=== PATIENT | female | born 1975 ===

== ENCOUNTER 2018-05-10 10:21 | Outpatient (CLI) | payer OTHER ==
[~2018-05-10] VITALS: Ht 152.4 cm; Wt 85.7 kg
== END 2018-05-10 10:40 | disposition home or self-care (01) ==
LOC: OFIC 805 10:21
DX: H93.11 Tinnitus, right ear (principal); H81.11 Benign paroxysmal vertigo, right ear; H90.41 Sensorineural hearing loss, unilateral, right ear, with unrestricted hearing on the contralateral side

== ENCOUNTER 2018-06-28 10:06 | Outpatient (CLI) | payer OTHER ==
[~2018-06-28] VITALS: Ht 152.4 cm; Wt 85.7 kg
== END 2018-06-28 10:20 | disposition home or self-care (01) ==
LOC: OFIC 805 10:06
DX: H93.11 Tinnitus, right ear (principal); H81.11 Benign paroxysmal vertigo, right ear; H90.41 Sensorineural hearing loss, unilateral, right ear, with unrestricted hearing on the contralateral side